=== PATIENT | male | born 1950 | race Hispanic/Latino ===

== ENCOUNTER 2022-10-18 07:56 | Outpatient (CLI) | payer MEDICARE, BC | END 2022-10-18 07:57 | disposition home or self-care (01) | LOC: ULT 07:56 | PROVIDERS: ATTEND Internal Medicine | DX: I35.0 Nonrheumatic aortic (valve) stenosis (principal); I25.10 Atherosclerotic heart disease of native coronary artery without angina pectoris; I65.23 Occlusion and stenosis of bilateral carotid arteries | CPT/HCPCS: 93880 ==

== ENCOUNTER 2022-11-09 08:06 | Outpatient (CLI) | payer MEDICARE, BC ==
[2022-11-09] MEDS ORDERED: Iopamidol 370 76% 100 ML VIAL ONE (10:28)
== END 2022-11-09 08:07 | disposition home or self-care (01) ==
LOC: CT 08:06
PROVIDERS: ATTEND Thoracic Surgery (Cardiothoracic Vascular Surgery)
DX: I65.22 Occlusion and stenosis of left carotid artery (principal)
CPT/HCPCS: 70498; 82565

== ENCOUNTER 2022-11-22 09:28 | Outpatient (CLI) | payer MEDICARE, BC ==
[2022-11-22 10:31] LABS: Hemoglobin 15.9 g/dL (13.5-17.5); Mean Corpuscular HGB CONC 33.8 g/dL (32.0-36.0); Mean Corpuscular Hemoglobin 29.7 pg (27.0-33.0); Mean Corpuscular Volume 87.9 fl (81.2-95.1); Mean Platelet Volume 10.2 fl (7.4-10.4); Platelet Count 334 10x3/uL (150-450); RBC Distribution Width 12.8 % (11.5-14.5); Red Blood Cell (RBC) Count 5.35 10x6/uL (4.32-5.72)
[2022-11-22 11:01] LABS: Anion Gap 17 mmol/L (10-20); BUN (Urea Nitrogen) 15 mg/dL (8.4-25.7); Calc. Creatinine Clearance 0 mL/min (70-130); Carbon Dioxide 24 mmol/L (23-31); Chloride 103 mmol/L (98-107); Estimated GFR 92; Glucose 107 mg/dL (83-110); Potassium 4.9 mmol/L (3.5-5.1); Sodium 139 mmol/L (136-145)
== END 2022-11-22 09:29 | disposition home or self-care (01) ==
LOC: LABBT 09:28
PROVIDERS: ATTEND Thoracic Surgery (Cardiothoracic Vascular Surgery)
DX: Z01.818 Encounter for other preprocedural examination (principal); I65.23 Occlusion and stenosis of bilateral carotid arteries
CPT/HCPCS: 80048; 85027; 93005; 93010

== ENCOUNTER 2022-11-22 09:30 | Inpatient (IN) | payer MEDICARE, BC ==
[2022-11-22 10:08] VITALS: BMI 31.1
[2022-11-23] MEDS ORDERED: Phenylephrine 10 MG/ML VIAL ONE (12:12)
[2022-11-23] MEDS ORDERED: Nitroglycerin 50 MG/250 ML BOT 250 ML ONE ×2 (12:12)
[2022-11-23] MEDS ORDERED: Norepinephrine 4 MG/4 ML VIAL ONE (12:12)
[2022-11-23] MEDS ORDERED: fentaNYL PF 100 MCG/2 ML SYRINGE ONE (12:12)
[2022-11-23] MEDS ORDERED: Heparin 5,000 UNITS/ML VIAL ONE (12:19)
[2022-11-23] MEDS ORDERED: Protamine Sulfate 50 MG/5 ML VIAL ONE (12:19)
[2022-11-23] MEDS ORDERED: PHENYLEPHRINE-NS 100 MCG/ML 10 ML SYRINGE ONE (12:21)
[2022-11-23] MEDS ORDERED: Dexamethasone 20 MG/5 ML VIAL ONE (12:21)
[2022-11-23] MEDS ORDERED: Ondansetron PF 4 MG/2 ML Vial ONE (12:21)
[2022-11-23] MEDS ORDERED: ePHEDrine Sulfate 50 MG/10 ML VIAL ONE (12:21)
[2022-11-23] MEDS ORDERED: PROPOFOL 200 MG/20 ML VIAL ONE (12:21)
[2022-11-23] MEDS ORDERED: Glycopyrrolate 0.2 MG/ML 5 ML SYRINGE ONE (12:21)
[2022-11-23] MEDS ORDERED: Lidocaine 1% PF 5 ML VIAL ONE (12:21)
[2022-11-23] MEDS ORDERED: Rocuronium Bromide 10 MG/ML (10ML VIAL) ONE (12:21)
[2022-11-23] MEDS ORDERED: SUGAMMADEX SODIUM 200 MG/2 ML VIAL ONE (12:30)
[2022-11-23] MEDS ORDERED: CEFAZOLIN 2 GM VIAL ONE (12:33)
[2022-11-23] MEDS ORDERED: Sodium Chloride 0.9% 100 ML ONE (12:33)
[2022-11-23] MEDS ORDERED: Bupivacaine PF 0.5% 30 ML VIAL ONE (13:08)
[2022-11-23] MEDS ORDERED: EPINEPHrine 1 MG/10 ML Abboject SYRINGE ONE (13:08)
[2022-11-23] MEDS ORDERED: Phenylephrine 40 MG in Sodium Chloride 0.9% 250 ML 250 ML IVPB PRN (14:07)
[2022-11-23] MEDS ORDERED: Promethazine HCl 25 MG/ML VIAL IM PRN ×2 (14:07→14:26)
[2022-11-23] MEDS ORDERED: Ipratropium/Albuterol 3 ML NEB NEB PRN (14:07)
[2022-11-23] MEDS ORDERED: Morphine 4 MG/ML VIAL SLOW IVP PRN (14:07)
[2022-11-23] MEDS ORDERED: Acetaminophen 325 MG TAB PO PRN (14:07)
[2022-11-23] MEDS ORDERED: niCARdipine 25 MG in Sodium Chloride 0.9% 250 ML 250 ML IVPB PRN (14:07)
[2022-11-23] MEDS ORDERED: Ondansetron PF 4 MG/2 ML Vial IVP PRN (14:07)
[2022-11-23] MEDS ORDERED: traMADol HCl 50 MG TAB PO PRN (14:07)
[2022-11-23] MEDS ORDERED: Sodium Chloride 0.9% 1,000 ML IV SCH (14:15)
[2022-11-23] MEDS ORDERED: Ondansetron HCl/PF 4 MG/2 ML Vial IVP PRN (14:26)
[2022-11-23] MEDS: CEFAZOLIN 2 GM in Sodium Chloride 0.9% 100 ML IVPB SCH (20:00)
[2022-11-23 20:21] VITALS: BP 108/65
[2022-11-23] MEDS ORDERED: Lisinopril 20 MG TAB PO SCH (21:00)
[2022-11-23] MEDS ORDERED: Atorvastatin Calcium 10 MG TAB PO SCH (21:00)
[2022-11-23] MEDS: Metoprolol Tartrate 50 MG TAB PO SCH (21:52)
[2022-11-24] MEDS: CEFAZOLIN 2 GM in Sodium Chloride 0.9% 100 ML IVPB SCH (04:15)
[2022-11-24 07:08] VITALS: TEMP 98
[2022-11-24] MEDS: Metoprolol Tartrate 50 MG TAB PO SCH (08:02)
[2022-11-24] MEDS ORDERED: Aspirin Chewable 81 MG TAB PO SCH (09:00)
[2022-11-24] MEDS ORDERED: PARoxetine 20 MG TAB PO SCH (09:00)
== END 2022-11-24 10:41 | disposition home or self-care (01) | DRG 39 ==
LOC: EDSTATUS 11-23 09:30 → SURG A 11-23 09:53 → CCU 11-23 15:47
PROVIDERS: ADMIT Thoracic Surgery (Cardiothoracic Vascular Surgery); ATTEND Thoracic Surgery (Cardiothoracic Vascular Surgery)
PROC: 03CJ0ZZ Extirpation of Matter from Left Common Carotid Artery, Open Approach (ICD-10-PCS; principal; 2022-11-23)
PROC: 03CN0ZZ Extirpation of Matter from Left External Carotid Artery, Open Approach (ICD-10-PCS; 2022-11-23)
PROC: 03CL0ZZ Extirpation of Matter from Left Internal Carotid Artery, Open Approach (ICD-10-PCS; 2022-11-23)
PROC: 03UL0KZ Supplement Left Internal Carotid Artery with Nonautologous Tissue Substitute, Open Approach (ICD-10-PCS; 2022-11-23)
DX: I65.23 Occlusion and stenosis of bilateral carotid arteries (principal); I10 Essential (primary) hypertension; E78.00 Pure hypercholesterolemia, unspecified; I25.10 Atherosclerotic heart disease of native coronary artery without angina pectoris; Z90.49 Acquired absence of other specified parts of digestive tract; Z98.890 Other specified postprocedural states; Z95.2 Presence of prosthetic heart valve; Z87.891 Personal history of nicotine dependence
CPT/HCPCS: C1768; J0171; J1100; J1644; J2370; J2405; J2704; J2720; J3490; S0020